=== PATIENT | female | born 1985 | race Caucasian/White ===

== ENCOUNTER 2023-02-27 21:19 | Inpatient (IN) | payer MEDICAID ==
[~2023-02-27] VITALS: Ht 160 cm; Wt 54.4 kg
[2023-02-27 22:04] LABS: BASOPHILS % 0.4 % (0.0-2.0); EOSINOPHILS % 0.8 % (0.0-5.0); LYMPHOCYTES % 7.1 % (20.0-50.0); MEAN CORPUSCULAR HEMOGLOBIN 29.5 pg (28.0-32.0); MEAN CORPUSCULAR VOLUME 89.4 fL (81.0-99.0); MONOCYTES % 5.7 % (2.0-8.0); PLATELET 233 x1000/uL (130-400); RED BLOOD CELL COUNT 2.29 mill/uL (4.2-5.4); RED CELL DISTRIBUTION WIDTH 14.4 % (11.6-14.6)
[2023-02-27 22:09] LABS: HEMATOCRIT. 20.4 % (36.0-48.0); HEMOGLOBIN. 6.7 g/dL (12.0-16.0)
[2023-02-27 22:12] LABS: CHLORIDE 111 mEq/L (98-107)
[2023-02-27 22:22] LABS: B-HCG QUANTITATIVE < 1 mIU/mL (<3)
[2023-02-27] MEDS ORDERED: SODIUM CHLORIDE 0.9% 1,000 ML IV ONE (23:30)
[2023-02-27] MEDS ORDERED: TRANEXAMIC ACID 1,000 MG/10 ML IV ONE (23:30)
[2023-02-27] MEDS ORDERED: TRANEXAMIC ACID 1,000 MG/10 ML IV NR (23:45)
[2023-02-28 08:02] LABS: *AMPHETAMINES SCREEN URINE NEGATIVE (NEGATIVE); *BARBITURATES SCREEN URINE NEGATIVE (NEGATIVE); *BENZODIAZEPINES SCREEN URINE NEGATIVE (NEGATIVE); *COCAINE SCREEN URINE NEGATIVE (NEGATIVE); CANNABINOID URINE SCREEN NEGATIVE (NEGATIVE); METHADONE URINE SCREEN NEGATIVE (NEGATIVE); OPIATES URINE SCREEN NEGATIVE (NEGATIVE); PHENCYCLIDINE URINE SCREEN NEGATIVE (NEGATIVE)
[2023-02-28 08:09] LABS: CLARITY URINE TURBID (CLEAR); COLOR URINE BLOODY (YELLOW)
[2023-02-28 08:10] LABS: KETONES URINE NEGATIVE (NEGATIVE); NITRITE URINE POSITIVE (NEGATIVE); OCCULT BLOOD URINE 3+ (NEGATIVE); PROTEIN URINE 1+ (NEGATIVE); SPECIFIC GRAVITY URINE 1.022 (1.005-1.030)
[2023-02-28 08:11] LABS: LEUKOCYTE ESTERASE URINE 3+ (NEGATIVE); UROBILINOGEN URINE 0.2 E.U./dL (0.2-1.0)
[2023-02-28 08:40] VITALS: BP 103/42
[2023-02-28] MEDS ORDERED: ONDANSETRON HCL 4MG/2ML INJ IV PRN (10:15)
[2023-02-28] MEDS ORDERED: CEFTRIAXONE 1GM PREMIX 50 ML IV SCH (10:15)
[2023-02-28] MEDS ORDERED: ACETAMINOPHEN 325MG TABLET PO PRN (10:15)
[2023-02-28 12:00] VITALS: BP 91/49
[2023-02-28] MEDS ORDERED: CEFTRIAXONE 1,000 MG in DEXTROSE 5% WATER 50 ML IV SCH (12:00)
[2023-02-28] MEDS ORDERED: IRON SUCROSE COMPLEX 100 MG/5 ML ML IV SCH (13:00)
[2023-02-28 16:00] VITALS: BP 101/57
[2023-02-28 16:55] LABS: HEMATOCRIT 26.8 % (36.0-48.0); HEMOGLOBIN 9.1 g/dL (12.0-16.0)
[2023-02-28 20:00] VITALS: BP 111/60
[2023-03-01] VITALS: BP 98/60
[2023-03-01 04:00] VITALS: BP 93/62
[2023-03-01 08:00] VITALS: BP 92/52
[2023-03-01 12:00] VITALS: BP 99/60
[2023-03-01] MEDS ORDERED: LEVO-65 MT (12:26)
[2023-03-01 12:55] VITALS: BP 99/60
== END 2023-03-01 16:20 | disposition home or self-care (01) | DRG 532 ==
LOC: ER 21:19 → MICUSO 23:51 → 7EST 02-28 08:40
PROVIDERS: ADMIT Internal Medicine; ATTEND Internal Medicine
PROC: 30233N1 Transfusion of Nonautologous Red Blood Cells into Peripheral Vein, Percutaneous Approach (ICD-10-PCS; principal; 2023-02-28)
DX: N92.0 Excessive and frequent menstruation with regular cycle (principal); E43 Unspecified severe protein-calorie malnutrition; D25.9 Leiomyoma of uterus, unspecified; N39.0 Urinary tract infection, site not specified; Z68.21 Body mass index [BMI] 21.0-21.9, adult
CPT/HCPCS: 36415; 76830; 76856; 80053; 80305; 81003; 84702; 85014; 85018; 85025; 86850; 86900; 86920; 99285; J0696; J7030; J7060; P9016